=== PATIENT | male | born 1980 | race Caucasian/White ===

== ENCOUNTER 2016-09-20 07:09 | Emergency (ER) | payer SELFPAY ==
[2016-09-20] MEDS ORDERED: SULFAMETHOXAZOLE/TRIMETHOPRIM 800-160 MG TABLET PO ONE (07:41)
[2016-09-20] MEDS ORDERED: CEPHALEXIN 500 MG CAPSULE PO ONE (07:41)
--- NOTE | 2016-09-20 07:43 | ER Document Report ---
HPI - HPI Patient complains to provider of: abscess Onset: Other - 4 days Onset/Duration: Persistent Quality of pain: Sharp Pain Level: 4 Context: Patient complains of an abscess to his right medial thigh for the past 4 days. Patient reports area opened and had a lot of drainage and started to feel somewhat improved yesterday. Patient denies any fever. Patient denies any history of MRSA. Associated Symptoms: Other - abscess. denies: Fever Exacerbated by: Movement Relieved by: Denies Similar symptoms previously: No Recently seen / treated by doctor: No - ROS ROS below otherwise negative: Yes Systems Reviewed and Negative: Yes All other systems reviewed and negative - CONSTITUTIONAL Constitutional: DENIES: Fever, Chills - CARDIOVASCULAR Cardiovascular: DENIES: Chest pain - GASTROINTESTINAL Gastrointestinal: DENIES: Nausea, Patient vomiting - MUSCULOSKELETAL Musculoskeletal: REPORTS: Extremity pain - DERM Skin Color: Erythema Notes: abscess Past Medical History - General Information source: Patient - Social History Smoking Status: Never Smoker Chew tobacco use (# tins/day): No Frequency of alcohol use: Rare Drug Abuse: None Occupation: none Family History: Reviewed & Not Pertinent, CAD, CVA, DM, Hyperlipidemia, Hypertension, Thyroid Disfunction, Other - Blood clots Patient has suicidal ideation: No Patient has homicidal ideation: No - Past Medical History Cardiac Medical History: Reports: Hx DVT, Hx Hypertension, Hx Pulmonary Embolism Pulmonary Medical History: Denies: Hx Tuberculosis Endocrine Medical History: Reports: Hx Diabetes Mellitus Type 2, Hx Hypothyroidism Renal/ Medical History: Reports: Hx Kidney Stones. Denies: Hx Peritoneal Dialysis Psychiatric Medical History: Reports: Hx Depression Past Surgical History: Reports: Hx Abdominal Surgery - bowel obstruction, Hx Oral Surgery - wisdom teeth - Immunizations Immunizations up to date: Yes Hx Diphtheria, Pertussis, Tetanus Vaccination: Yes Hx Pneumococcal Vaccination: 03/02/13 Vertical Provider Document - CONSTITUTIONAL Agree With Documented VS: Yes Exam Limitations: No Limitations General Appearance: WD/WN, No Apparent Distress - INFECTION CONTROL TRAVEL OUTSIDE OF THE [place] IN LAST 30 DAYS: No - HEENT HEENT: Atraumatic, Normocephalic - NECK Neck: Normal Inspection - RESPIRATORY Respiratory: No Respiratory Distress O2 Sat by Pulse Oximetry: 97 - REPRODUCTIVE Male Genitalia: Normal Inspection - MUSCULOSKELETAL/EXTREMETIES Musculoskeletal/Extremeties: MAEW, FROM, Tender - right medial thigh tenderness with abscess - NEURO Level of Consciousness: Awake, Alert, Appropriate Motor/Sensory: No Motor Deficit - DERM Integumentary: Warm, Dry, Abscess - fluctuant abscess to medial aspect of proximal right thigh Course - Re-evaluation Re-evalutation: 09/20/16 08:58 The patient has been informed that they may have pre-hypertension or hypertension based on a blood pressure reading in the emergency department. I recommend that patient call the primary care provider listed on their discharge instructions or a physician of their choice by this week to arrange follow-up for further evaluation of possible pre-hypertension her hypertension. - Vital Signs Vital signs: Temp Pulse Resp BP Pulse Ox 97.9 F 116 H 20 145/100 H 97 09/20/16 07:16 09/20/16 07:16 09/20/16 07:16 09/20/16 07:16 09/20/16 07:16 Procedures - Incision and Drainage Right Thigh Type: Simple Anesthetic type: 1% Lidocaine Blade size: 11 I&D procedure: Betadine prep applied Incision Method: Incision made by scalpel Amount/type of drainage: small amount of purulent drainage Adult Front & Back picture: 1 - abscess with surrounding erythema Discharge - Discharge Clinical Impression: Hx of essential hypertension, Abscess, Encounter for incision and drainage procedure Condition: Stable Disposition: HOME, SELF-CARE Instructions: Abscess ([facility]), Oral Narcotic Medication ([facility]), Trimethoprim- Sulfa ([facility]), Cephalexin ([facility]), Post Incision and Drainage Additional Instructions: Return immediately for any new or worsening symptoms Followup with your primary care provider, call tomorrow to make a followup appointment Return for any increased swelling, pain, fever, redness, or any concerning symptoms Prescriptions: Cephalexin Monohydrate [Keflex 500 mg Capsule] 500 mg PO Q6H 5 Days Oxycodone HCl/Acetaminophen [Percocet 5-325 mg Tablet] 1 - 2 tab PO ASDIR PRN # 15 tablet PRN Reason: Sulfamethoxazole/Trimethoprim [Bactrim Ds Tablet] 1 each PO BID #20 tablet Forms: Elevated Blood Pressure Referrals: ALEX BA MD [Primary Care Provider] - Follow up tomorrow
[2016-09-20 09:11] VITALS: BP 134/85
== END 2016-09-20 09:11 | disposition home or self-care (01) ==
LOC: ER 07:09
PROC: 0H9HXZZ Drainage of Right Upper Leg Skin, External Approach (ICD-10-PCS; principal; 2016-09-20)
DX: L02.415 Cutaneous abscess of right lower limb (principal); I10 Essential (primary) hypertension; E11.9 Type 2 diabetes mellitus without complications
CPT/HCPCS: 99283

== ENCOUNTER 2016-10-07 09:12 | Emergency (ER) | payer SELFPAY ==
[2016-10-07] MEDS ORDERED: OXYCODONE-ACETAMINOPHEN 5-325 MG TABLET PO ONE (10:11)
[2016-10-07] MEDS ORDERED: CLINDAMYCIN HCL 150 MG CAPSULE PO ONE (10:11)
--- NOTE | 2016-10-07 10:12 | ER Document Report ---
HPI - HPI Patient complains to provider of: abscess Onset: Other - 3 days Onset/Duration: Gradual Quality of pain: Achy Pain Level: 5 Context: Patient complains of abscess to right upper thigh for the past 3 days. Patient states that he was here 2 weeks ago with an abscess on the same leg that was just above the skin lesion today. Patient states that his initial abscess resolved. Patient denies any fever. Associated Symptoms: Other - Abscess Exacerbated by: Movement Relieved by: Denies Similar symptoms previously: Yes Recently seen / treated by doctor: Yes - ROS ROS below otherwise negative: Yes Systems Reviewed and Negative: Yes All other systems reviewed and negative - CONSTITUTIONAL Constitutional: DENIES: Fever, Chills - CARDIOVASCULAR Cardiovascular: DENIES: Chest pain - GASTROINTESTINAL Gastrointestinal: DENIES: Nausea - MUSCULOSKELETAL Musculoskeletal: REPORTS: Extremity pain - DERM Skin Color: Normal Notes: abscess Past Medical History - General Information source: Patient - Social History Smoking Status: Never Smoker Chew tobacco use (# tins/day): No Frequency of alcohol use: Occasional Drug Abuse: None Occupation: none Family History: Reviewed & Not Pertinent, CAD, CVA, DM, Hyperlipidemia, Hypertension, Thyroid Disfunction, Other - Blood clots - Past Medical History Cardiac Medical History: Reports: Hx DVT, Hx Hypertension, Hx Pulmonary Embolism Pulmonary Medical History: Denies: Hx Tuberculosis Endocrine Medical History: Reports: Hx Diabetes Mellitus Type 2, Hx Hypothyroidism Renal/ Medical History: Reports: Hx Kidney Stones. Denies: Hx Peritoneal Dialysis Psychiatric Medical History: Reports: Hx Depression Past Surgical History: Reports: Hx Abdominal Surgery - bowel obstruction, Hx Oral Surgery - wisdom teeth - Immunizations Immunizations up to date: Yes Hx Diphtheria, Pertussis, Tetanus Vaccination: Yes Hx Pneumococcal Vaccination: 03/02/13 Vertical Provider Document - CONSTITUTIONAL Agree With Documented VS: Yes Exam Limitations: No Limitations General Appearance: WD/WN, No Apparent Distress - INFECTION CONTROL TRAVEL OUTSIDE OF THE [place] IN LAST 30 DAYS: No - HEENT HEENT: Atraumatic, Normocephalic - NECK Neck: Normal Inspection - RESPIRATORY Respiratory: No Respiratory Distress O2 Sat by Pulse Oximetry: 97 - CARDIOVASCULAR Cardiovascular: Regular Rate, Regular Rhythm, No Murmur - MUSCULOSKELETAL/EXTREMETIES Musculoskeletal/Extremeties: MAEW, FROM - NEURO Level of Consciousness: Awake, Alert, Appropriate Motor/Sensory: No Motor Deficit - DERM Integumentary: Warm, Dry, Abscess - r medial thigh, just inferior to previous abscsess site from last ED visit Course - Vital Signs Vital signs: Temp Pulse Resp BP Pulse Ox 97.7 F 111 H 20 153/100 H 97 10/07/16 09:19 10/07/16 09:19 10/07/16 09:19 10/07/16 09:19 10/07/16 09:19 Procedures - Incision and Drainage Right Thigh Type: Simple Anesthetic type: 1% Lidocaine Blade size: 11 I&D procedure: Betadine prep applied Incision Method: Incision made by scalpel Amount/type of drainage: mod amount purulent drainage Discharge - Discharge Clinical Impression: Abscess, Encounter for incision and drainage procedure, Hx of essential hypertension Condition: Stable Disposition: HOME, SELF-CARE Instructions: Abscess ([facility]), Post Incision and Drainage, Oral Narcotic Medication ([facility]), Clindamycin ([facility]), Bactroban Ointment ([facility]) Additional Instructions: Return immediately for any new or worsening symptoms Followup with your primary care provider, call tomorrow to make a followup appointment Prescriptions: Clindamycin HCl [Cleocin Hcl] 300 mg PO QID #28 capsule Mupirocin [Bactroban 2% Ointment 22 gm] 1 applic TP TID #22 gm Oxycodone HCl/Acetaminophen [Percocet 5-325 mg Tablet] 1 tab PO ASDIR PRN #15 tablet PRN Reason: Forms: Elevated Blood Pressure Referrals: GRADY BA MD [Primary Care Provider] - Follow up tomorrow
[2016-10-07 11:02] VITALS: BP 142/91
== END 2016-10-07 11:06 | disposition home or self-care (01) ==
LOC: ER 09:12
PROC: 0H9HXZZ Drainage of Right Upper Leg Skin, External Approach (ICD-10-PCS; principal; 2016-10-07)
DX: L02.415 Cutaneous abscess of right lower limb (principal); E11.9 Type 2 diabetes mellitus without complications; I10 Essential (primary) hypertension
CPT/HCPCS: 99283

== ENCOUNTER 2016-12-25 09:24 | Emergency (ER) | payer SELFPAY ==
[2016-12-25 09:44] VITALS: BP 138/89
[2016-12-25] MEDS ORDERED: OXYCODONE-ACETAMINOPHEN 5-325 MG TABLET PO ONE (10:02)
[2016-12-25] MEDS ORDERED: CEPHALEXIN 500 MG CAPSULE PO ONE (10:02)
[2016-12-25] MEDS ORDERED: SULFAMETHOXAZOLE/TRIMETHOPRIM 800-160 MG TABLET PO ONE (10:02)
--- NOTE | 2016-12-25 10:07 | ER Document Report ---
ED Skin Rash/Insect Bite/Abscs - General Chief Complaint: Abscess Stated Complaint: NECK PAIN Time Seen by Provider: 12/25/16 09:51 Mode of Arrival: Ambulatory Information source: Patient Notes: 36-year-old male presents to ED for abscess to the posterior neck. States he has had this area slowly increase in discomfort. There is a red swollen tender area. No drainage noted. TRAVEL OUTSIDE OF THE [place] IN LAST 30 DAYS: No - HPI Patient complains to provider of: Tender/swollen area Onset: Other - 2 days Onset/Duration: Gradual Quality of pain: Achy Severity: Moderate Pain Level: 4 Skin Character: Abscess Quality of rash: Painful Identify cause: No Exacerbated by: Movement Relieved by: Denies Similar symptoms previously: No Recently seen / treated by doctor: No - Related Data Allergies/Adverse Reactions: No Known Allergies Allergy (Verified 12/25/16 09:40) Past Medical History - General Information source: Patient - Social History Smoking Status: Never Smoker Cigarette use (# per day): No Chew tobacco use (# tins/day): No Smoking Education Provided: No Frequency of alcohol use: Occasional Drug Abuse: None Lives with: Family Family History: Reviewed & Not Pertinent, CAD, CVA, DM, Hyperlipidemia, Hypertension, Thyroid Disfunction, Other - Blood clots. denies: Arthritis Patient has suicidal ideation: No Patient has homicidal ideation: No - Past Medical History Cardiac Medical History: Reports: Hx DVT, Hx Hypertension, Hx Pulmonary Embolism Pulmonary Medical History: Reports: None EENT Medical History: Reports: None Neurological Medical History: Reports: None Endocrine Medical History: Reports: Hx Diabetes Mellitus Type 2, Hx Hypothyroidism Renal/ Medical History: Reports: Hx Kidney Stones Malignancy Medical History: Reports None GI Medical History: Reports: None Musculoskeltal Medical History: Reports None Skin Medical History: Reports Hx Cellulitis Psychiatric Medical History: Reports: Hx Depression Traumatic Medical History: Reports: None Infectious Medical History: Reports: None Past Surgical History: Reports: Hx Abdominal Surgery - bowel obstruction, Hx Oral Surgery - wisdom teeth - Immunizations Immunizations up to date: Yes Hx Diphtheria, Pertussis, Tetanus Vaccination: Yes Hx Pneumococcal Vaccination: 03/02/13 Review of Systems - Review of Systems Constitutional: No symptoms reported EENT: No symptoms reported Cardiovascular: No symptoms reported Respiratory: No symptoms reported Gastrointestinal: No symptoms reported Genitourinary: No symptoms reported Male Genitourinary: No symptoms reported Musculoskeletal: No symptoms reported Skin: Lesions - Posterior neck Hematologic/Lymphatic: No symptoms reported Neurological/Psychological: No symptoms reported Physical Exam - Vital signs Vitals: Temp Pulse BP Pulse Ox 98.3 F 103 H 138/89 H 18 L 12/25/16 09:40 12/25/16 09:40 12/25/16 09:40 12/25/16 09:40 Interpretation: Normal - General General appearance: Appears well, Alert - HEENT Head: Normocephalic, Atraumatic Eyes: Normal Pupils: PERRL - Respiratory Respiratory status: No respiratory distress Chest status: Nontender Breath sounds: Normal Chest palpation: Normal - Cardiovascular Rhythm: Regular Heart sounds: Normal auscultation Murmur: No - Abdominal Inspection: Normal Distension: No distension Bowel sounds: Normal Tenderness: Nontender Organomegaly: No organomegaly - Back Back: Normal, Nontender - Extremities General upper extremity: Normal inspection, Nontender, Normal color, Normal ROM , Normal temperature General lower extremity: Normal inspection, Nontender, Normal color, Normal ROM , Normal temperature, Normal weight bearing. No: Dina's sign - Neurological Neuro grossly intact: Yes Cognition: Normal Orientation: AAOx4 Spike Coma Scale Eye Opening: Spontaneous [place] Coma Scale Verbal: Oriented Spike Coma Scale Motor: Obeys Commands [place] Coma Scale Total: 15 Speech: Normal Motor strength normal: LUE, RUE, LLE, RLE Sensory: Normal - Psychological Associated symptoms: Normal affect, Normal mood - Skin Skin Temperature: Warm Skin Moisture: Dry Skin Color: Normal Skin irregularity: Abscess Location of irregularity: Neck - Posterior neck Irregularity with: Swelling, Tenderness, Warmth Course - Re-evaluation Re-evalutation: 12/25/16 11:07 Abscess cleaned well with Betadine and I&D it with a 18-gauge needle. Moderate amount of drainage purulent removed. Wound culture sent. Bacitracin applied to the site with a gauze pad. Patient was then started on Bactrim and Keflex. Patient was given a Percocet in the emergency room and stated he can take Tylenol and Motrin at home. He states he has narcotics at home if he needs to. - Vital Signs Vital signs: Temp Pulse Resp BP Pulse Ox 98.3 F 103 H 138/89 H 18 L 12/25/16 09:40 12/25/16 09:40 12/25/16 09:40 12/25/16 09:40 Procedures - Incision and Drainage Posterior Neck Time completed: 09:55 Type: Simple mL's of anesthetic: 0 Blade size: Other - 18-gauge needle I&D procedure: Betadine prep applied Incision Method: Incision made with needle Amount/type of drainage: Moderate amount of purulent drainage from the I&D site Discharge - Discharge Clinical Impression: Abscess Condition: Stable Disposition: HOME, SELF-CARE Instructions: Family Physicians / Practices Additional Instructions: ABSCESS: You have an abscess (boil). This a pus-forming infection, usually due to staph. Some boils may be left to drain on their own, but most require lancing. From the time the tender lump first appears, it may be three or four days before the abscess is ready to sesar. Local heat and rest help at this stage of treatment. An antibiotic may prevent spread of the infection. Once the abscess is opened, packing may be placed into it. This is done so pus is not sealed inside by premature closure of the cavity. The packing will be removed at your follow-up visit or you may be advised to remove it yourself at home. Sometimes this packing must be replaced a few times during healing. The wound will heal with surprisingly little scar. Depending on the size and location of an abscess, healing can take one to four weeks. You may shower and wash the area around the incision site two or three times a day. Antibiotics may be prescribed, but are usually not necessary after an abscess has been drained. If you develop fever, chills, worsening pain, or increasing swelling in the area, call the doctor or return immediately. POST INCISION AND DRAINAGE: You have had an incision made to allow drainage of an abscess. The incision must remain open so that pus and debris can drain from the wound. If the abscess cavity is large, packing is placed. This keeps the tissues from collapsing and trapping pus inside, while the body shrinks the cavity. The packing may need to be replaced every day or two. The physician will instruct you on the packing. Keep a bulky dressing over the area. Replace it if it becomes saturated with blood or pus. Do not disturb the packing (if present). You may shower and cleanse the area with gentle soap and warm water two or three times a day. Local warmth may be soothing, and may promote faster healing. Return if you develop high fever or chills, or if you note spreading redness, increasing swelling, or increasing tenderness. ORAL NARCOTIC MEDICATION: You have been given a percocet for pain control. This medication is a narcotic. It's best taken with food, as nausea can result if taken on an empty stomach. Don't operate machinery or drive within six hours of taking this medication. Do not combine this medicine with alcohol, or with any medication which can cause sedation (such as cold tablets or sleeping pills) unless you get permission from the physician. Narcotics tend to cause constipation. If possible, drink plenty of fluids and eat a diet high in fiber and fruits. CEPHALEXIN: The antibiotic you've been prescribed is a member of the cephalosporin class. This type of antibiotic covers a wide variety of infections, including those of the skin, lungs, and urinary tract. It's useful for staph infections. This antibiotic is slightly similar to the penicillin family. In rare cases , a person who is allergic to penicillin will also be allergic to this medication. If you have had a severe allergic reaction to penicillin, and have not taken this antibiotic since that time, notify your doctor. Antibiotics which cover many germs ("broad spectrum" antibiotics) are more likely to cause diarrhea or "yeast" infections. Women prone to vaginal yeast problems may suffer an attack after taking this antibiotic. In infants, oral thrush (white spots "stuck" on the cheek) or yeast diaper rash may result. See your doctor if these problems occur. Call at once if you develop itching, hives , shortness of breath, or lightheadedness. TRIMETHOPRIM-SULFA: You have been given a prescription for trimethoprim-sulfa (TMS, Septra, Bactrim). This is a combination antibiotic of the sulfa class, often used for urinary tract infections, middle ear infections, bronchitis, shigella intestinal infection, and Pneumocystis pneumonia. TMS is usually well-tolerated. Occasional side effects include nausea and decreased appetite. Septra is not recommended for infants less than two months of age. Do not take this medication if you have experienced severe side effects or allergy to sulfa medicine. You should stop this medicine at once and contact your physician if you develop any rash, joint pain, shortness of breath, bruising, or jaundice ( yellow color in the skin), or if you develop any other new or unusual symptoms. FOLLOW-UP CARE: Most simple abscesses will not require a follow up visit. If you had packing placed in the abscess, remove it as instructed by the physician. If you have been referred to a physician for follow-up care, call the physicians office for an appointment as you were instructed or within the next two days. If you experience worsening or a significant change in your symptoms, return to the Emergency Department at any time for re-evaluation. Prescriptions: Cephalexin Monohydrate [Keflex 500 mg Capsule] 500 mg PO Q6H 5 Days capsule Sulfamethoxazole/Trimethoprim [Septra-Ds 800-160 mg Tablet] 1 tab PO BID #14 tablet Forms: Elevated Blood Pressure, Return to Work Referrals: GRADY BA MD [Primary Care Provider] - Follow up as needed
== END 2016-12-25 10:14 | disposition home or self-care (01) ==
LOC: ER 09:24
PROC: 0H94XZZ Drainage of Neck Skin, External Approach (ICD-10-PCS; principal; 2016-12-25)
DX: L02.11 Cutaneous abscess of neck (principal); I10 Essential (primary) hypertension; E11.9 Type 2 diabetes mellitus without complications; E03.9 Hypothyroidism, unspecified; Z86.711 Personal history of pulmonary embolism; Z86.718 Personal history of other venous thrombosis and embolism; Z87.442 Personal history of urinary calculi
CPT/HCPCS: 87070; 87075; 87077; 87186; 87205; 99283

== ENCOUNTER 2017-04-03 00:38 | Emergency (ER) | payer SELFPAY ==
[2017-04-03 00:53] VITALS: BP 133/87
[2017-04-03] MEDS ORDERED: SULFAMETHOXAZOLE/TRIMETHOPRIM 800-160 MG TABLET PO ONE (01:49)
--- NOTE | 2017-04-03 01:53 | ER Document Report ---
ED General - General Chief Complaint: Snake Bite Stated Complaint: POSSIBLE INSECT BITE Notes: Patient is a 37-year-old male with a past medical history of a left lower extremity DVT currently on chronic anti-coagulation with rivaroxaban who presents with 3-4 days of progressively worsening pain and swelling to an area on his right central calf. He describes the area as a severe, constant, throbbing pain. He states the pain has worsened since onset. Touching the area worsens the pain, nothing improves the pain. He states this feels similar to when he has had abscesses in the past although he thinks he has been bitten by a spider. He denies any fever or constitutional symptoms. He has not seen a primary doctor regarding today's concerns. TRAVEL OUTSIDE OF THE [place] IN LAST 30 DAYS: No - Related Data Allergies/Adverse Reactions: No Known Allergies Allergy (Verified 12/25/16 09:40) Past Medical History - General Information source: Patient - Social History Smoking Status: Never Smoker Frequency of alcohol use: None Drug Abuse: None Lives with: Spouse/Significant other Family History: Reviewed & Not Pertinent, CAD, CVA, DM, Hyperlipidemia, Hypertension, Thyroid Disfunction, Other - Blood clots. denies: Arthritis - Past Medical History Cardiac Medical History: Reports: Hx DVT, Hx Hypertension, Hx Pulmonary Embolism Pulmonary Medical History: Denies: Hx Tuberculosis Endocrine Medical History: Reports: Hx Diabetes Mellitus Type 2, Hx Hypothyroidism Renal/ Medical History: Reports: Hx Kidney Stones. Denies: Hx Peritoneal Dialysis Skin Medical History: Reports Hx Cellulitis Psychiatric Medical History: Reports: Hx Depression Past Surgical History: Reports: Hx Abdominal Surgery - bowel obstruction, Hx Oral Surgery - wisdom teeth - Immunizations Immunizations up to date: Yes Hx Diphtheria, Pertussis, Tetanus Vaccination: Yes Hx Pneumococcal Vaccination: 03/02/13 Review of Systems - Review of Systems Notes: Constitutional: Negative for fever. HENT: Negative for sore throat. Eyes: Negative for visual changes. Cardiovascular: Negative for chest pain. Respiratory: Negative for shortness of breath. Gastrointestinal: Negative for abdominal pain, vomiting or diarrhea. Genitourinary: Negative for dysuria. Musculoskeletal: Negative for back pain. Skin: Positive for rash. Neurological: Negative for headaches, weakness or numbness. 10 point ROS negative except as marked above and in HPI. Physical Exam - Vital signs Vitals: Temp Pulse Resp BP Pulse Ox 97.9 F 106 H 20 133/87 H 98 04/03/17 00:51 04/03/17 00:51 04/03/17 00:51 04/03/17 00:51 04/03/17 00:51 Interpretation: Tachycardic Notes: PHYSICAL EXAMINATION: GENERAL: Well-appearing, well-nourished and in no acute distress. HEAD: Atraumatic, normocephalic. EYES: sclera anicteric, conjunctiva are normal. ENT: Moist mucous membranes. NECK: Normal range of motion LUNGS: Normal work of breathing HEART: 2+ radial pulses bilaterally EXTREMITIES: no pitting or edema. No cyanosis. NEUROLOGICAL: No focal neurological deficits. Moves all extremities spontaneously and on command. PSYCH: Normal mood, normal affect. SKIN: Warm, Dry, normal turgor, there is a 0.5 x 0.5 cm abscess in the central calf of the right lower extremity Course - Re-evaluation Re-evalutation: 04/03/17 01:50 Patient presents with a small 0.5 cm x 0.5 similar abscess on his right posterior distal lower extremity. This was incised and drained at bedside. Patient has been started on trimethoprim sulfamethoxazole. There is no significant surrounding cellulitis. Patient does not meet sepsis criteria and is otherwise very well in appearance. At this time will discharge with return precautions and follow-up recommendations. Verbal discharge instructions given a the bedside and opportunity for questions given. Medication warnings reviewed. Patient is in agreement with this plan and has verbalized understanding of return precautions and the need for primary care follow-up in the next 24-72 hours. - Vital Signs Vital signs: Temp Pulse Resp BP Pulse Ox 97.9 F 106 H 20 133/87 H 98 04/03/17 00:51 04/03/17 00:51 04/03/17 00:51 04/03/17 00:51 04/03/17 00:51 Procedures - Incision and Drainage Right Leg Time completed: :50 Type: Simple Anesthetic type: 1% Lidocaine mL's of anesthetic: 3 Blade size: 11 I&D procedure: Betadine prep applied, Sterile dressing applied Incision Method: Incision made by scalpel Amount/type of drainage: 2 cc of purulent drainage Discharge - Discharge Clinical Impression: Abscess of right leg Condition: Good Disposition: HOME, SELF-CARE Additional Instructions: You were seen for an abscess that required drainage. Please clean this area with soap and water twice daily and apply a topical antibiotic. Dress the area after each cleaning. Please return if you develop fever, vomiting, the pain at the site worsens, you notice spreading redness from the area, or you have any other symptoms that are concerning to you. Prescriptions: Sulfamethoxazole/Trimethoprim [Bactrim Ds Tablet] 2 tab PO BID #28 tablet
== END 2017-04-03 02:24 | disposition home or self-care (01) ==
LOC: ER 00:38
PROC: 0H9KXZZ Drainage of Right Lower Leg Skin, External Approach (ICD-10-PCS; principal; 2017-04-03)
DX: L02.415 Cutaneous abscess of right lower limb (principal)
CPT/HCPCS: 99281

== ENCOUNTER 2017-04-08 11:51 | Emergency (ER) | payer SELFPAY ==
--- NOTE | 2017-04-08 14:31 | ER Document Report ---
ED Medical Screen (RME) - General Chief Complaint: Leg Pain Stated Complaint: RIGHT LEG PAIN Time Seen by Provider: 04/08/17 14:25 Mode of Arrival: Ambulatory Information source: Patient Notes: 37 yo male and right post calf abscess I and D 5 days ago TRAVEL OUTSIDE OF THE [place] IN LAST 30 DAYS: No - Related Data Allergies/Adverse Reactions: No Known Allergies Allergy (Verified 12/25/16 09:40) Past Medical History - Past Medical History Cardiac Medical History: Reports: Hx DVT, Hx Hypertension, Hx Pulmonary Embolism Pulmonary Medical History: Denies: Hx Tuberculosis Endocrine Medical History: Reports: Hx Diabetes Mellitus Type 2, Hx Hypothyroidism Renal/ Medical History: Reports: Hx Kidney Stones. Denies: Hx Peritoneal Dialysis Skin Medical History: Reports Hx Cellulitis Psychiatric Medical History: Reports: Hx Depression Past Surgical History: Reports: Hx Abdominal Surgery - bowel obstruction, Hx Oral Surgery - wisdom teeth - Immunizations Immunizations up to date: Yes Hx Diphtheria, Pertussis, Tetanus Vaccination: Yes Physical Exam - Vital signs Vitals: Temp Pulse Resp BP Pulse Ox 97.9 F 98 18 131/81 H 97 04/08/17 13:11 04/08/17 13:11 04/08/17 13:11 04/08/17 13:11 04/08/17 13:11 Course - Vital Signs Vital signs: Temp Pulse Resp BP Pulse Ox 97.9 F 98 18 131/81 H 97 04/08/17 13:11 04/08/17 13:11 04/08/17 13:11 04/08/17 13:11 04/08/17 13:11
--- NOTE | 2017-04-08 14:37 | ER Document Report ---
HPI - HPI Patient complains to provider of: wound check Onset: Other - 5 days ago Pain Level: 4 Context: 37 yo male and right post calf abscess I and D 5 days ago, worried about the red area around the incision location and the pain. Decreased swelling, no fever , using ointment. Associated Symptoms: None Exacerbated by: Denies Relieved by: Denies Similar symptoms previously: No Recently seen / treated by doctor: No - ROS ROS below otherwise negative: Yes Systems Reviewed and Negative: Yes All other systems reviewed and negative Past Medical History - General Information source: Patient - Social History Smoking Status: Former Smoker Frequency of alcohol use: Occasional Drug Abuse: None Occupation: [employer] Lives with: Spouse/Significant other Family History: Reviewed & Not Pertinent, CAD, CVA, DM, Hyperlipidemia, Hypertension, Thyroid Disfunction, Other - Blood clots - Past Medical History Cardiac Medical History: Reports: Hx DVT, Hx Hypertension, Hx Pulmonary Embolism Pulmonary Medical History: Denies: Hx Tuberculosis Endocrine Medical History: Reports: Hx Diabetes Mellitus Type 2, Hx Hypothyroidism Renal/ Medical History: Reports: Hx Kidney Stones. Denies: Hx Peritoneal Dialysis Skin Medical History: Reports Hx Cellulitis Psychiatric Medical History: Reports: Hx Depression Past Surgical History: Reports: Hx Abdominal Surgery - bowel obstruction, Hx Oral Surgery - wisdom teeth, Hx Vascular Surgery - blood clot in left calf - Immunizations Immunizations up to date: Yes Hx Diphtheria, Pertussis, Tetanus Vaccination: Yes Hx Pneumococcal Vaccination: 03/02/13 Vertical Provider Document - CONSTITUTIONAL Agree With Documented VS: Yes - INFECTION CONTROL TRAVEL OUTSIDE OF THE [place] IN LAST 30 DAYS: No - RESPIRATORY O2 Sat by Pulse Oximetry: 97 - MUSCULOSKELETAL/EXTREMETIES Musculoskeletal/Extremeties: MAEW - NEURO Level of Consciousness: Awake, Alert - DERM Notes: posterior left lower leg with incision site with no drainage or induration, square shaped red dermatitis surrounding the incision site. Course - Vital Signs Vital signs: Temp Pulse Resp BP Pulse Ox 97.9 F 98 18 131/81 H 97 04/08/17 13:11 04/08/17 13:11 04/08/17 13:11 04/08/17 13:11 04/08/17 13:11 Discharge - Discharge Clinical Impression: Dermatitis, Abscess re-check Condition: Good Disposition: HOME, SELF-CARE Instructions: Post Incision and Drainage Additional Instructions: continue the septra warm compress stop the antibioitic ointment wash well with antibacterial soap and water daily, dry dressing, paper tape to er if any increased pain, fever, drainage, or hardness Prescriptions: Hydrocodone Bit/Acetaminophen [Hydrocodon-Acetaminophen 5-325] 1 each PO Q4HP PRN #15 tablet PRN Reason: Referrals: ALEX BA MD [Primary Care Provider] - Follow up as needed
[2017-04-08 14:44] VITALS: BP 124/90
== END 2017-04-08 14:44 | disposition home or self-care (01) ==
LOC: ER 11:51
DX: L30.9 Dermatitis, unspecified (principal); L02.415 Cutaneous abscess of right lower limb; Z87.891 Personal history of nicotine dependence
CPT/HCPCS: 99283

== ENCOUNTER 2017-06-05 13:54 | Emergency (ER) | payer SELFPAY ==
--- NOTE | 2017-06-05 14:50 | ER Document Report ---
ED General - General TRAVEL OUTSIDE OF THE [place] IN LAST 30 DAYS: No - General Chief Complaint: Abscess Stated Complaint: ABSCESS/NECK Time Seen by Provider: 06/05/17 14:43 - Related Data Allergies/Adverse Reactions: No Known Allergies Allergy (Verified 06/05/17 14:50) Past Medical History - Social History Smoking Status: Never Smoker Chew tobacco use (# tins/day): No Frequency of alcohol use: None Drug Abuse: None Family History: Reviewed & Not Pertinent, CAD, CVA, DM, Hyperlipidemia, Hypertension, Thyroid Disfunction, Other - Blood clots Patient has suicidal ideation: No Patient has homicidal ideation: No - Past Medical History Cardiac Medical History: Reports: Hx DVT, Hx Hypertension, Hx Pulmonary Embolism Pulmonary Medical History: Denies: Hx Tuberculosis Endocrine Medical History: Reports: Hx Diabetes Mellitus Type 2, Hx Hypothyroidism Renal/ Medical History: Reports: Hx Kidney Stones. Denies: Hx Peritoneal Dialysis Skin Medical History: Reports Hx Cellulitis Psychiatric Medical History: Reports: Hx Depression Past Surgical History: Reports: Hx Abdominal Surgery - bowel obstruction, Hx Oral Surgery - wisdom teeth, Hx Vascular Surgery - blood clot in left calf - Immunizations Immunizations up to date: Yes Hx Diphtheria, Pertussis, Tetanus Vaccination: Yes Hx Pneumococcal Vaccination: 03/02/13 - Vital signs Vitals: Temp Pulse Resp BP Pulse Ox 98.0 F 115 H 18 124/79 97 06/05/17 14:03 06/05/17 14:03 06/05/17 14:03 06/05/17 14:03 06/05/17 14:03 Course - Re-evaluation Re-evalutation: 06/05/17 14:50 Currently the nodule was not fluctuant although it is tender to palpation, no indication for incision and drainage as there is no evidence of abscess it appears to be cellulitis over top of an enlarged lymph node. Patient states he is already taking an antibiotic but does not know which one at home. Patient will be prescribed Bactrim and Keflex for a full 7 day course. He is instructed to stop taking the antibiotic that he has help at home and start taking the Bactrim and Keflex. Patient is to return should this get bigger, develop drainage or have any new or concerning symptoms. He is instructed on Epsom salts compresses. (DRAGAN REED) - Vital Signs Vital signs: Temp Pulse Resp BP Pulse Ox 98.0 F 115 H 18 124/79 97 06/05/17 14:03 06/05/17 14:03 06/05/17 14:03 06/05/17 14:03 06/05/17 14:03 Discharge - Discharge Clinical Impression: Cellulitis, neck Condition: Stable Disposition: HOME, SELF-CARE Additional Instructions: Currently I do not see an abscess. The nodule is firm rather than soft. If it becomes soft or "juicy" feeling like it is full of liquid please return to the emergency department and we will drain this. If it gets larger, redder, you develop fevers or develop more pain with swallowing please return to the emergency department. Please take the Bactrim and the Keflex as directed until it is gone. Please stop taking the antibiotic that you have at home. Prescriptions: Cephalexin Monohydrate [Keflex 500 mg Capsule] 1,000 mg PO BID #28 capsule Sulfamethoxazole/Trimethoprim [Bactrim Ds Tablet] 1 each PO BID #14 tablet Referrals: JAY MACEDO MD [ACTIVE STAFF] - Follow up as needed
[2017-06-05] MEDS ORDERED: NITROGLYCERIN 0.4 MG/TAB 25 TAB/BOTTLE SL PRN (15:01)
[2017-06-05] MEDS ORDERED: ASPIRIN 81 MG TABLET, CHEWABLE PO ONE (15:01)
--- NOTE | 2017-06-05 15:01 | ER Document Report ---
ED Medical Screen (RME) - General Mode of Arrival: Ambulatory Information source: Patient TRAVEL OUTSIDE OF THE [place] IN LAST 30 DAYS: No - HPI Patient complains to provider of: Chest Pain and Right neck abscess Onset: Other - 3 days ago Associated Symptoms: Other - see notes above <KAMALJIT SANTIAGO - Last Filed: 06/05/17 15:02> <DRAGAN REED - Last Filed: 06/05/17 15:33> - General Chief Complaint: Abscess Stated Complaint: ABSCESS/NECK Time Seen by Provider: 06/05/17 14:43 Notes: 37-year-old male with history of previous abscesses and DVT (on Xarelto) presents to the ED complaining of a painful abscess and swelling to the right neck which started 3 days ago. Patient explains that he is having trouble swallowing food, liquids, and his own saliva. Patient has been taking an unknown antibiotic for the past 3 days with no relief. Patient denies any fever. Immediately prior to discharge and after a significant discussion about caring for the nodule on the patient's neck, the patient stated that he is here for chest pain which radiates to his left arm that started 3 days ago. Patient is additionally complaining of shortness of breath. Patient denies any past medical history of an IA, CVA, or pulmonary embolism. (KAMALJIT SANTIAGO) - Related Data Allergies/Adverse Reactions: No Known Allergies Allergy (Verified 06/05/17 14:50) Past Medical History - General Information source: Patient - Social History Chew tobacco use (# tins/day): No Frequency of alcohol use: None Drug Abuse: None - Past Medical History Cardiac Medical History: Reports: Hx DVT, Hx Hypertension, Hx Pulmonary Embolism Pulmonary Medical History: Denies: Hx Tuberculosis Endocrine Medical History: Reports: Hx Diabetes Mellitus Type 2, Hx Hypothyroidism Renal/ Medical History: Reports: Hx Kidney Stones. Denies: Hx Peritoneal Dialysis Skin Medical History: Reports Hx Cellulitis Psychiatric Medical History: Reports: Hx Depression Past Surgical History: Reports: Hx Abdominal Surgery - bowel obstruction, Hx Oral Surgery - wisdom teeth, Hx Vascular Surgery - blood clot in left calf - Immunizations Immunizations up to date: Yes Hx Diphtheria, Pertussis, Tetanus Vaccination: Yes <KAMALJIT SANTIAGO - Last Filed: 06/05/17 15:02> Review of Systems - Review of Systems Constitutional: No symptoms reported EENT: See HPI, Other - nodule to the right neck Cardiovascular: See HPI, Chest pain Respiratory: See HPI, Short of breath Gastrointestinal: No symptoms reported Genitourinary: No symptoms reported Male Genitourinary: No symptoms reported Musculoskeletal: No symptoms reported Skin: No symptoms reported Hematologic/Lymphatic: No symptoms reported Neurological/Psychological: No symptoms reported -: Yes All other systems reviewed and negative <KAMALJIT SANTIAGO - Last Filed: 06/05/17 15:02> Physical Exam - General General appearance: Alert - HEENT Head: Normocephalic, Atraumatic Eyes: Normal Pupils: PERRL Ears: Normal External canal: Normal Tympanic membrane: Normal Nasal: Normal Pharynx: Post nasal drainage. No: Normal Neck: Other - 2 cm non-fluctuant nodule to the anterior right neck along the anterior cervical chain.. No: Normal <KAMALJIT SANTIAGO - Last Filed: 06/05/17 15:02> - Vital signs Vitals: Temp Pulse Resp BP Pulse Ox 98.0 F 115 H 18 124/79 97 06/05/17 14:03 06/05/17 14:03 06/05/17 14:03 06/05/17 14:03 06/05/17 14:03 Course - Laboratory Result Diagrams: 06/05/17 15:14 06/05/17 15:14 <DRAGAN REED - Last Filed: 06/05/17 15:33> - Vital Signs Vital signs: Temp Pulse Resp BP Pulse Ox 98.0 F 111 H 18 139/90 H 100 06/05/17 14:03 06/05/17 15:00 06/05/17 15:17 06/05/17 15:17 06/05/17 15:20 Doctor's Discharge <KAMALJIT SANTIAGO - Last Filed: 06/05/17 15:02> <DRAGAN REED - Last Filed: 06/05/17 15:33> - Discharge Scribe Documentation - Scribe Written by Shaggy:: Shaggy Bustillos, 06/05/2017 1515 acting as scribe for :: Johanne <KAMALJIT SANTIAGO - Last Filed: 06/05/17 15:02>
--- NOTE | 2017-06-05 15:16 | EKG REPORT ---
SEVERITY:- NORMAL ECG - SINUS RHYTHM : Confirmed by: Mo Reeves 05-Jun-2017 15:15:42
--- NOTE | 2017-06-05 15:26 | ER Document Report ---
ED General - General Chief Complaint: Abscess Stated Complaint: ABSCESS/NECK Time Seen by Provider: 06/05/17 14:43 Mode of Arrival: Ambulatory Notes: 37-year-old male to the emergency department chief complaint of shortness of breath and chest pain. Patient states it began last night. Having shortness of breath. Has a history of blood clot in both legs. On Xarelto. Also complaining of an abscess on the right anterior neck wondering if it needs to be incised. Denies any fever, chills, sweats. Denies any abdominal pain. Denies any nausea vomiting or diarrhea. Has been taking his Xarelto as instructed. Has no regular doctor. Followed by a surgeon in [place]. Patient states that he developed a blood clot for no apparent reason. Cause significant damage to the left gastroc muscle requiring surgery. Patient states that he has struggled since that time with issues around the surgery including blood clot in the right lower extremity and arterial occlusions. TRAVEL OUTSIDE OF THE [place] IN LAST 30 DAYS: No - HPI Onset: Yesterday Onset/Duration: Gradual, Worse - Related Data Allergies/Adverse Reactions: No Known Allergies Allergy (Verified 06/05/17 14:50) Past Medical History - General Information source: Patient - Social History Smoking Status: Never Smoker Chew tobacco use (# tins/day): No Frequency of alcohol use: None Drug Abuse: None Lives with: Family Family History: Reviewed & Not Pertinent, CAD, CVA, DM, Hyperlipidemia, Hypertension, Thyroid Disfunction, Other - Blood clots Patient has suicidal ideation: No Patient has homicidal ideation: No - Past Medical History Cardiac Medical History: Reports: Hx DVT, Hx Hypertension, Hx Pulmonary Embolism Pulmonary Medical History: Denies: Hx Tuberculosis Endocrine Medical History: Reports: Hx Diabetes Mellitus Type 2, Hx Hypothyroidism Renal/ Medical History: Reports: Hx Kidney Stones. Denies: Hx Peritoneal Dialysis Skin Medical History: Reports Hx Cellulitis Psychiatric Medical History: Reports: Hx Depression Past Surgical History: Reports: Hx Abdominal Surgery - bowel obstruction, Hx Oral Surgery - wisdom teeth, Hx Vascular Surgery - blood clot in left calf - Immunizations Immunizations up to date: Yes Hx Diphtheria, Pertussis, Tetanus Vaccination: Yes Hx Pneumococcal Vaccination: 03/02/13 Review of Systems - Review of Systems Constitutional: denies: Fever, Malaise, Weakness EENT: Other - Abscess right anterior neck. denies: Eye pain, Eye discharge, Double vision, Ear pain, Throat pain, Difficulty swallowing, Mouth pain, Mouth swelling Cardiovascular: Chest pain, Heart racing, Dyspnea. denies: Palpitations, Orthopnea, Edema Respiratory: Short of breath. denies: Cough, Hurts to breathe, Wheezing Musculoskeletal: denies: Back pain, Gout, Joint pain Skin: No symptoms reported, Lumps, Other - Right anterior abscess/lung. denies : Dryness, Lesions Hematologic/Lymphatic: Blood clots. denies: Anemia, Swollen glands Neurological/Psychological: No symptoms reported. denies: Confusion, Weakness, Numbness Physical Exam - Vital signs Vitals: Temp Pulse Resp BP Pulse Ox 98.0 F 115 H 18 124/79 97 06/05/17 14:03 06/05/17 14:03 06/05/17 14:03 06/05/17 14:03 06/05/17 14:03 Interpretation: Tachycardic - General General appearance: Appears well, Alert - HEENT Head: Normocephalic, Atraumatic Eyes: Normal Pupils: PERRL Neck: Other - There is a small 1 cm area of fullness right anterior lateral neck. - Respiratory Respiratory status: No respiratory distress Chest status: Nontender Breath sounds: Normal Chest palpation: Normal - Cardiovascular Rhythm: Tachycardia Heart sounds: Normal auscultation Murmur: No - Abdominal Inspection: Normal Distension: No distension Bowel sounds: Normal Tenderness: Nontender Organomegaly: No organomegaly - Back Back: Normal, Nontender - Extremities General upper extremity: Normal inspection, Nontender, Normal color, Normal ROM , Normal temperature General lower extremity: Normal inspection, Nontender, Normal color, Normal ROM , Normal temperature, Normal weight bearing. No: Dina's sign - Neurological Neuro grossly intact: Yes Cognition: Normal Orientation: AAOx4 Spike Coma Scale Eye Opening: Spontaneous [place] Coma Scale Verbal: Oriented [place] Coma Scale Motor: Obeys Commands Spike Coma Scale Total: 15 Speech: Normal Motor strength normal: LUE, RUE, LLE, RLE Sensory: Normal - Psychological Associated symptoms: Normal affect, Normal mood - Skin Skin Temperature: Warm Skin Moisture: Dry Skin Color: Normal Course - Re-evaluation Re-evalutation: 06/05/17 19:46 Laboratory 06/05/17 06/05/17 06/05/17 15:14 15:14 15:14 WBC 15.1 H RBC 5.27 Hgb 15.7 Hct 46.8 MCV 89 MCH 29.8 MCHC 33.6 RDW 13.1 Plt Count 345 Seg Neutrophils % 75.5 Lymphocytes % 14.7 Monocytes % 7.9 Eosinophils % 1.6 Basophils % 0.3 Absolute Neutrophils 11.4 H Absolute Lymphocytes 2.2 Absolute Monocytes 1.2 Absolute Eosinophils 0.2 Absolute Basophils 0.0 PT INR APTT Sodium 132.6 L Potassium 5.1 H Chloride 100 Carbon Dioxide 24 Anion Gap 9 BUN 10 Creatinine 0.80 Est GFR ( Amer) > 60 Est GFR (Non-Af Amer) > 60 Glucose 445 H* Calcium 9.9 Total Bilirubin 0.5 Direct Bilirubin 0.3 Neonat Total Bilirubin Not Reportable Neonat Direct Bilirubin Not Reportable Neonat Indirect Bili Not Reportable AST 27 ALT 59 Alkaline Phosphatase 92 Creatine Kinase 66 CK-MB (CK-2) 2.80 Troponin I 0.242 Total Protein 7.3 Albumin 3.9 06/05/17 06/05/17 15:14 18:50 WBC RBC Hgb Hct MCV MCH MCHC RDW Plt Count Seg Neutrophils % Lymphocytes % Monocytes % Eosinophils % Basophils % Absolute Neutrophils Absolute Lymphocytes Absolute Monocytes Absolute Eosinophils Absolute Basophils PT 13.1 INR 0.93 APTT 28.0 Sodium Potassium Chloride Carbon Dioxide Anion Gap BUN Creatinine Est GFR ( Amer) Est GFR (Non-Af Amer) Glucose Calcium Total Bilirubin Direct Bilirubin Neonat Total Bilirubin Neonat Direct Bilirubin Neonat Indirect Bili AST ALT Alkaline Phosphatase Creatine Kinase CK-MB (CK-2) Troponin I 0.282 Total Protein Albumin 06/05/17 19:[address] scan of the chest to rule out PE. No obvious PE. Has mildly elevated WBC count, large amount of glucose. Troponin has not gone down but actually gone up slightly at 0.282. At this time must conclude this is a non- ST segment elevation [place]/acute coronary syndrome. Will transfer shortly when I can find a bed for him. 06/05/17 20:12 Dr. Gore with internal medicine at [facility] is accepted patient. Insulin subcu has been ordered. Accu-Chek ordered. Patient stable at this time. Pending transport. - Vital Signs Vital signs: Temp Pulse Resp BP Pulse Ox 98.0 F 111 H 15 114/68 97 03/24/18 14:03 06/05/17 15:00 06/05/17 20:01 06/05/17 16:25 06/05/17 20:01 - Laboratory Result Diagrams: 06/05/17 15:14 06/05/17 15:14 Laboratory results interpreted by me: 06/05/17 06/05/17 06/05/17 15:14 15:14 19:30 WBC 15.1 H Absolute Neutrophils 11.4 H Sodium 132.6 L Potassium 5.1 H Glucose 445 H* Urine Glucose (UA) >=500 H - EKG Interpretation by Me EKG shows normal: Sinus rhythm, [place], Intervals, QRS Complexes, ST-T Waves Critical Care Note - Critical Care Note Total time excluding time spent on procedures (mins): 60 Comments: Acute coronary syndrome, hyperglycemia, consultation with specialists, coordination of transfer of care. Discharge - Discharge Clinical Impression: Acute coronary syndrome Condition: Good Referrals: ALEX BA MD [Primary Care Provider] - Follow up as needed
[2017-06-05 15:32] LABS: ABSOLUTE EOSINOPHILS # (AUTO) 0.2 10^3/uL (0.0-0.6); ABSOLUTE LYMPHOCYTES (AUTO) 2.2 10^3/uL (0.5-4.7); ABSOLUTE MONOCYTES (AUTO) 1.2 10^3/uL (0.1-1.4); ABSOLUTE NEUT (AUTO) 11.4 10^3/uL (1.7-8.2); BASOPHILS % (AUTO) 0.3 % (0-2); EOSINOPHILS % (AUTO) 1.6 % (0-6); HEMATOCRIT 46.8 % (37.9-51.0); HEMOGLOBIN 15.7 g/dL (13.5-17.0); LYMPHOCYTES % (AUTO) 14.7 % (13-45); MEAN CORPUSCULAR HEMOGLOBIN 29.8 pg (27.0-33.4); MEAN CORPUSCULAR HGB CONC 33.6 g/dL (32.0-36.0); MEAN CORPUSCULAR VOLUME 89 fl (80-97); MONOCYTES % (AUTO) 7.9 % (3-13); PLATELET COUNT 345 10^3/uL (150-450); RED BLOOD COUNT 5.27 10^6/uL (4.35-5.55); RED CELL DISTRIBUTION WIDTH 13.1 % (11.5-14.0); SEGMENTED NEUTROPHILS % (AUTO) 75.5 % (42-78); TOTAL CELLS COUNTED % (AUTO) 100 %; WHITE BLOOD COUNT 15.1 10^3/uL (4.0-10.5)
[2017-06-05 15:45] LABS: ALANINE AMINOTRANSFERASE 59 U/L (21-72); ALBUMIN 3.9 g/dL (3.5-5.0); ALKALINE PHOSPHATASE 92 U/L (38-126); ANION GAP 9 (5-19); ASPARTATE AMINO TRANSFERASE 27 U/L (17-59); BILIRUBIN,DIRECT 0.3 mg/dL (0.0-0.4); BILIRUBIN,TOTAL 0.5 mg/dL (0.2-1.3); BLOOD UREA NITROGEN 10 mg/dL (7-20); CALCIUM 9.9 mg/dL (8.4-10.2); CARBON DIOXIDE 24 mmol/L (22-30); CHLORIDE 100 mmol/L (98-107); CREATINE KINASE 66 U/L (55-170); POTASSIUM 5.1 mmol/L (3.6-5.0); SODIUM 132.6 mmol/L (137-145); TOTAL PROTEIN 7.3 g/dL (6.3-8.2)
--- NOTE | 2017-06-05 15:51 | RADIOLOGY REPORT (SQ) ---
EXAM DESCRIPTION: CHEST SINGLE VIEW COMPLETED DATE/TIME: 06/05/2017 3:33 pm REASON FOR STUDY: left sided chest pain COMPARISON: CT angio chest 10/07/2015 Chest films 10/07/2015, 09/11/2015 EXAM PARAMETERS: NUMBER OF VIEWS: One view. TECHNIQUE: Single frontal radiographic view of the chest acquired. RADIATION DOSE: NA LIMITATIONS: None. FINDINGS: LUNGS AND PLEURA: No opacities, masses or pneumothorax. No pleural effusion. MEDIASTINUM AND HILAR STRUCTURES: No masses. Contour normal. HEART AND VASCULAR STRUCTURES: Heart normal in size. Normal vasculature. BONES: No acute findings. HARDWARE: None in the chest. OTHER: No other significant finding. IMPRESSION: NO ACUTE RADIOGRAPHIC FINDING IN THE CHEST. TECHNICAL DOCUMENTATION: JOB ID: [id number] [employer]- All Rights Reserved Reading location - IP/workstation name: [email or web address]
[2017-06-05 15:52] LABS: GLUCOSE 445 mg/dL (75-110)
[2017-06-05 15:59] LABS: CREATINE KINASE MB 2.8 ng/mL (<4.55)
[2017-06-05] MEDS ORDERED: NORMAL SALINE 1000 ML 1,000 ML IV ONE (15:59)
[2017-06-05 16:02] LABS: TROPONIN I 0.242 ng/mL
[2017-06-05] MEDS ORDERED: HEPARIN SOD (PORCINE) 1,000 UNIT/ML 10 ML VIAL IV ONE (17:10)
[2017-06-05] MEDS ORDERED: HEPARIN SODIUM,PORCINE/D5W 25,000 UNIT/250 ML RTUINJ IV PRN (17:10)
--- NOTE | 2017-06-05 17:15 | RADIOLOGY REPORT (SQ) ---
EXAM DESCRIPTION: CTA CHEST COMPLETED DATE/TIME: 06/05/2017 4:55 pm REASON FOR STUDY: chest pain and sob COMPARISON: Chest radiograph 06/05/[address] 10/07/2015 TECHNIQUE: CT scan of the chest performed using helical scanning technique with dynamic intravenous contrast injection. Images reviewed with lung, soft tissue and bone windows. Reconstructed coronal and sagittal MPR images reviewed. Additional 3 dimensional post-processing performed to develop Maximal Intensity Projection images (IN P). All images stored on PACS. All CT scanners at this facility use dose modulation, iterative reconstruction, and/or weight based d osing when appropriate to reduce radiation dose to as low as reasonably achievable (ALARA). [facility]: Dose Right [facility]: CareDose [facility]: Dose Right [facility]: Teradose 4D [facility]: e-contratos CONTRAST TYPE AND DOSE: contrast/concentration: Isovue 370.00 mg/ml; Total Contrast Delivered: 83.0 ml; Total Saline Delivered: 110.1 ml Contrast bolus optimized for the pulmonary arteries. Not diagnostic for the aorta. RENAL FUNCTION: BUN 10; creatinine 0.8 RADIATION DOSE: CT Rad equipment meets quality standard of care and radiation dose reduction techniq ues were employed. CTDIvol: 33.1 - 33.7 mGy. DLP: 1226 mGy-cm. . LIMITATIONS: Suboptimal bolus timing. FINDINGS: LUNGS AND PLEURA: No masses, infiltrates, pneumothorax. No pleural effusions, calcificati ons. AORTA AND GREAT VESSELS: No aneurysm. Contrast bolus not optimized for the aorta. HEART: No pericardial effusion. Coronary artery calcifications are present. PULMONARY ARTERIES: No emboli visualized in the main pulmonary arteries or the segmental branches. HILAR AND MEDIASTINAL STRUCTURES: No identified masses or abnormal nodes. HARDWARE: None in the chest. UPPER ABDOMEN: No significant findings. Limited exam. THYROID AND OTHER SOFT TISSUES: No masses. No adenopathy. BONES: No acute or significant finding. 3D MIPS: Confirm above findings. OTHER: No other significant finding. IMPRESSION: NORMAL CTA OF THE CHEST. NO PULMONARY EMBOLI. COMMENT: Quality ID # [id number]: Final reports with documentation of one or more dose reduction techniques (e.g., Automated exposure control, adjustment of the mA and/or kV according to patient size, use of iterative reconstruction technique) TECHNICAL DOCUMENTATION: JOB ID: [id number]- All Rights Reserved Reading location - IP[facility]workstation name: [email or web address]
[2017-06-05 17:25] LABS: INTERNATIONAL RATION (INR) 0.93; PROTHROMBIN TIME 13.1 SEC (11.4-15.4)
[2017-06-05] MEDS ORDERED: HEPARIN SODIUM,PORCINE/D5W 25,000 UNIT/250 ML RTUINJ IV ONE (17:30)
[2017-06-05 20:07] LABS: APPEARANCE,URINE CLEAR; BILIRUBIN,URINE NEGATIVE (NEGATIVE); COLOR,URINE STRAW; GLUCOSE, URINE >=500 mg/dL (NEGATIVE); KETONES,URINE NEGATIVE (NEGATIVE); LEUKOCYTE ESTERASE,URINE NEGATIVE (NEGATIVE); NITRITE,URINE NEGATIVE (NEGATIVE); PROTEIN,URINE NEGATIVE (NEGATIVE); URINE SPECIFIC GRAVITY 1.041; UROBILINOGEN,URINE NEGATIVE mg/dL (<2.0)
[2017-06-05] MEDS ORDERED: HEPARIN SOD (PORCINE) 1,000 UNIT/ML 10 ML VIAL IV PRN (20:11)
[2017-06-05] MEDS ORDERED: INSULIN REG, HUMAN 100 UNIT/ML 3 ML VIAL (PYX) SUBCUT ONE (20:11)
[2017-06-05] MEDS ORDERED: VANCOMYCIN HCL INJ 1000 MG VIAL IV ONE (20:26)
[2017-06-05 21:45] VITALS: BP 123/70
--- NOTE | 2017-06-05 21:47 | EKG REPORT ---
SEVERITY:- NORMAL ECG - SINUS RHYTHM : Confirmed by: Mo Reeves 05-Jun-2017 21:46:55
== END 2017-06-05 21:50 | disposition short-term general hospital (02) ==
LOC: ER 13:54
DX: I24.9 Acute ischemic heart disease, unspecified (principal); I10 Essential (primary) hypertension; E11.65 Type 2 diabetes mellitus with hyperglycemia; L02.11 Cutaneous abscess of neck; R07.9 Chest pain, unspecified; R06.02 Shortness of breath; R00.0 Tachycardia, unspecified; D72.829 Elevated white blood cell count, unspecified; Z79.01 Long term (current) use of anticoagulants; Z86.711 Personal history of pulmonary embolism; Z86.718 Personal history of other venous thrombosis and embolism; Z82.49 Family history of ischemic heart disease and other diseases of the circulatory system
CPT/HCPCS: 93005; 99291; 96361; 96365; 96366; 96367; 36415; 87040; 82553; 82962; 82550; 85025; 85610; 85730; 80053; 81001; 84484; 71045; 71275; 93010; J1644 ×2; J1815; J7030; J3370

== ENCOUNTER 2017-08-10 00:29 | Emergency (ER) | payer SELFPAY ==
[2017-08-10] MEDS ORDERED: MORPHINE SULFATE IR 15 MG TABLET PO ONE (02:13)
[2017-08-10] MEDS ORDERED: ONDANSETRON 4 MG TAB.RAPDIS PO ONE (02:13)
[2017-08-10] MEDS ORDERED: LIDOCAINE 1% INJ-PF (10 MG/ML) 30 ML SDV INJ ONE (02:14)
[2017-08-10] MEDS ORDERED: SULFAMETHOXAZOLE/TRIMETHOPRIM 800-160 MG TABLET PO ONE (03:36)
[2017-08-10] MEDS ORDERED: HYDROCODONE/ACETAMINOPHEN 5-325 MG (6 TAB/ER DISP) PO PRN (03:36)
--- NOTE | 2017-08-10 03:43 | ER Document Report ---
HPI - HPI Patient complains to provider of: right axilla abscess Onset: Last week - with second abscess in the last 1-2 days Quality of pain: Throbbing Severity: Severe Pain Level: 4 - ROS ROS below otherwise negative: Yes - CONSTITUTIONAL Constitutional: DENIES: Fever, Chills - EENT EENT: DENIES: Sore Throat, Ear Pain, Eye problems - NEURO Neurology: DENIES: Headache, Weakness, Vision blurred, Dizzinesss / Vertigo - CARDIOVASCULAR Cardiovascular: DENIES: Chest pain - RESPIRATORY Respiratory: DENIES: Trouble Breathing, Coughing - GASTROINTESTINAL Gastrointestinal: DENIES: Abdominal Pain, Black / Bloody Stools - URINARY Urinary: DENIES: Dysuria, Urgency, Frequency - MUSCULOSKELETAL Musculoskeletal: REPORTS: Extremity pain - Under R arm Past Medical History - General Information source: Patient - Social History Smoking Status: Current Every Day Smoker Frequency of alcohol use: Occasional Drug Abuse: None Family History: Reviewed & Not Pertinent, CAD, CVA, DM, Hyperlipidemia, Hypertension, Thyroid Disfunction, Other - Blood clots Patient has suicidal ideation: No Patient has homicidal ideation: No - Past Medical History Cardiac Medical History: Reports: Hx DVT, Hx Hypertension, Hx Pulmonary Embolism Pulmonary Medical History: Denies: Hx Tuberculosis Endocrine Medical History: Reports: Hx Diabetes Mellitus Type 2, Hx Hypothyroidism Renal/ Medical History: Reports: Hx Kidney Stones. Denies: Hx Peritoneal Dialysis Skin Medical History: Reports Hx Cellulitis Psychiatric Medical History: Reports: Hx Depression Past Surgical History: Reports: Hx Abdominal Surgery - bowel obstruction, Hx Oral Surgery - wisdom teeth, Hx Vascular Surgery - blood clot in left calf - Immunizations Immunizations up to date: Yes Hx Diphtheria, Pertussis, Tetanus Vaccination: Yes Hx Pneumococcal Vaccination: 03/02/13 Vertical Provider Document - CONSTITUTIONAL Agree With Documented VS: Yes - INFECTION CONTROL TRAVEL OUTSIDE OF THE [place] IN LAST 30 DAYS: No - NECK Neck: Normal Inspection - RESPIRATORY Respiratory: Breath Sounds Normal - CARDIOVASCULAR Cardiovascular: Regular Rate, Regular Rhythm - GI/ABDOMEN Gastrointestinal: Abdomen Soft - DERM Integumentary: Abscess - right axilla Course - Re-evaluation Re-evalutation: 37-year-old male presents with complaint of 2 abscesses to his right axilla. Patient reports that they are very tender and he feels that the are ready to be drained. Patient does have a history of multiple other abscesses however none in this location. Patient does report past medical history of diabetes. Patient denies any fevers. Attempted to drain both abscesses with moderate amount of serosanguineous drainage. Patient tolerated procedure well. Patient will be discharged on Bactrim as patient does have a history of diabetes and he has had multiple abscesses in the past. - Vital Signs Vital signs: Temp Pulse Resp BP Pulse Ox 98.6 F 106 H 18 143/97 H 98 08/10/17 01:15 08/10/17 01:15 08/10/17 01:15 08/10/17 01:15 08/10/17 01:15 Procedures - Incision and Drainage Right Axilla Type: Simple Anesthetic type: 1% Lidocaine mL's of anesthetic: 20 Blade size: 11 I&D procedure: Betadine prep applied, Shurclens applied Incision Method: Incision made by scalpel Amount/type of drainage: approx 10ml bloody drainage Discharge - Discharge Clinical Impression: Abscess Condition: Stable Disposition: HOME, SELF-CARE Additional Instructions: Abscess You have an abscess (boil). This a pus-forming infection, usually due to staph. Some boils may be left to drain on their own, but most require lancing. From the time the tender lump first appears, it may be three or four days before the abscess is ready to sesar. Local heat and rest help at this stage of treatment. An antibiotic may prevent spread of the infection. You may shower and wash the area around the incision site two or three times a day. If you develop fever, chilling, worsening pain, or increasing swelling in the area, call the doctor or return immediately. Please do a bleach bath once per month. Apply warm compresses. Prescriptions: Sulfamethoxazole/Trimethoprim [Bactrim Ds Tablet] 1 each PO BID #14 tablet Forms: Return to Work
[2017-08-10 03:58] VITALS: BP 130/77
== END 2017-08-10 03:58 | disposition home or self-care (01) ==
LOC: ER 00:29
DX: L02.411 Cutaneous abscess of right axilla (principal); E11.9 Type 2 diabetes mellitus without complications; I10 Essential (primary) hypertension; F17.200 Nicotine dependence, unspecified, uncomplicated
CPT/HCPCS: 99283; 10061; A6266; S0119; J3490

== ENCOUNTER 2017-11-06 05:58 | Emergency (ER) | payer SELFPAY ==
[2017-11-06 06:04] VITALS: BP 133/106
--- NOTE | 2017-11-06 07:29 | ER Document Report ---
ED Eye Complaint - General Chief Complaint: Eye Pain Stated Complaint: SWOLLEN EYE Time Seen by Provider: 11/06/17 07:07 Notes: 37-year-old male to the emergency department chief complaint right eye pain. States that over the last 3 days he knows that he has a stye on the right eye. Lower eyelid nasal aspect of the lower eyelid. Has continued to swell. Now very tender to the touch. Has been using warm compress but not getting better. Denies any fever or chills but redness seems to be spreading underneath the right eye. Feels burning sharp pain. Cannot keep his eyes open. Has some oxycodone at home and has been taking that but that does not help the pain. TRAVEL OUTSIDE OF THE [place] IN LAST 30 DAYS: No - HPI Onset: Other - 3 days ago Occurred at: Home Severity: Moderate Pain Level: 3 - Related Data Allergies/Adverse Reactions: No Known Allergies Allergy (Verified 11/06/17 06:00) Past Medical History - General Information source: Patient - Social History Smoking Status: Smoker,Current Status Unk Frequency of alcohol use: None Lives with: Spouse/Significant other Family History: Reviewed & Not Pertinent, CAD, CVA, DM, Hyperlipidemia, Hypertension, Thyroid Disfunction, Other - Blood clots - Past Medical History Cardiac Medical History: Reports: Hx DVT, Hx Hypertension, Hx Pulmonary Embolism Pulmonary Medical History: Denies: Hx Tuberculosis Endocrine Medical History: Reports: Hx Diabetes Mellitus Type 2, Hx Hypothyroidism Renal/ Medical History: Reports: Hx Kidney Stones. Denies: Hx Peritoneal Dialysis Skin Medical History: Reports Hx Cellulitis Psychiatric Medical History: Reports: Hx Depression Past Surgical History: Reports: Hx Abdominal Surgery - bowel obstruction, Hx Oral Surgery - wisdom teeth, Hx Vascular Surgery - blood clot in left calf - Immunizations Immunizations up to date: Yes Hx Diphtheria, Pertussis, Tetanus Vaccination: Yes Hx Pneumococcal Vaccination: 03/02/13 Review of Systems - Review of Systems Constitutional: denies: Fever, Malaise, Weakness EENT: Eye pain, Tearing. denies: Difficulty swallowing, Mouth pain Cardiovascular: denies: Chest pain, Palpitations, Heart racing Respiratory: denies: Cough, Hurts to breathe, Short of breath, Wheezing Skin: See HPI, Other - Redness right lower eyelid. denies: Dryness, Lesions, Lumps Hematologic/Lymphatic: Blood clots, Easy bruising Neurological/Psychological: denies: Confusion, Weakness, Numbness Physical Exam - Vital signs Vitals: Temp Pulse Resp BP Pulse Ox 97.9 F 91 20 133/106 H 99 11/06/17 06:00 11/06/17 06:00 11/06/17 06:00 11/06/17 06:00 11/06/17 06:00 Interpretation: Hypertensive - General General appearance: Appears well, Alert - HEENT Head: Normocephalic Eyes: Other - There is some right lower lid edema with obvious stye on the medial aspect of the lower lid on the right. There is some surrounding nazanin- orbital lower lid edema and erythema. Conjunctiva: Normal. No: Icteric, Injected, Purulent discharge Nasal: Normal Mouth/Lips: Normal - Respiratory Respiratory status: No respiratory distress Chest status: Nontender Breath sounds: Normal Chest palpation: Normal - Cardiovascular Rhythm: Regular Heart sounds: Normal auscultation Murmur: No - Skin Skin Temperature: Warm Skin Moisture: Dry Skin Color: Normal Course - Re-evaluation Re-evalutation: 11/06/17 07:[address] on some ketorolac ophthalmic, erythromycin ointment and clindamycin oral. Advised follow-up with [facility] or return if getting worse. - Vital Signs Vital signs: Temp Pulse Resp BP Pulse Ox 97.9 F 91 20 133/106 H 99 11/06/17 06:00 11/06/17 06:00 11/06/17 06:00 11/06/17 06:00 11/06/17 06:00 Discharge - Discharge Clinical Impression: Hordeolum externum (stye) Qualifiers: Laterality: right Eyelid: lower Qualified Code(s): H00.012 - Hordeolum externum right lower eyelid Condition: Good Disposition: HOME, SELF-CARE Instructions: [facility] ([facility]) Prescriptions: Clindamycin HCl 300 mg PO QID 7 Days #28 capsule Erythromycin Base [Erythromycin Oph 1 Gm Oint Ud] 1 applic OD QID 7 Days #1 tube Ketorolac Tromethamine 1 drop OD QID 7 Days #3 ml Forms: Return to Work Referrals: SHERRY SMITH MD [ACTIVE STAFF] - Follow up in 3-5 days
== END 2017-11-06 07:38 | disposition home or self-care (01) ==
LOC: ER 05:58
DX: H00.012 Hordeolum externum right lower eyelid (principal); I10 Essential (primary) hypertension; E11.9 Type 2 diabetes mellitus without complications; E03.9 Hypothyroidism, unspecified; F17.200 Nicotine dependence, unspecified, uncomplicated; Z86.718 Personal history of other venous thrombosis and embolism; Z86.711 Personal history of pulmonary embolism; Z87.442 Personal history of urinary calculi
CPT/HCPCS: 99283